=== PATIENT | female | born 1975 | race Caucasian/White ===

== ENCOUNTER 2020-05-15 08:15 | Emergency (ER) | payer OTHER ==
[2020-05-15 08:23] VITALS: BMI 28.9
[2020-05-15] MEDS ORDERED: CASIRIVIMAB (REGN10933) 1,200 MG, IMDEVIMAB (REGN10987) 1,200 MG in SODIUM CHLORIDE 250 ML IVPB ONE (09:24)
[2020-05-15 09:53] LABS: HEMATOCRIT 36.4 % (32.4-45.2); HEMOGLOBIN 12.2 GM/dL (10.7-15.3); MCH 28.9 pg (25.7-33.7); MCHC 33.5 g/dl (32.0-36.0); MEAN CELL VOLUME 86.4 fl (80-96); MEAN PLT VOLUME 7.6 fl (7.5-11.1); PLATELET COUNT 300 K/MM3 (134-434); RBC 4.21 M/mm3 (3.60-5.2); RDW 13.3 % (11.6-15.6); WHITE BLOOD COUNT 6.2 K/mm3 (4.0-10.0)
[2020-05-15 10:10] LABS: CHLORIDE 105 mmol/L (98-107); SODIUM 140 mmol/L (136-145)
[2020-05-15 10:12] LABS: BLOOD UREA NITROGEN 7.7 mg/dL (7-18); CALCIUM 9.5 mg/dL (8.5-10.1); CO2 31 mmol/L (21-32); GLUCOSE,RANDOM 177 mg/dL (74-106)
[2020-05-15 10:15] LABS: ANION GAP 5 MMOL/L (8-16); CREATININE 0.7 mg/dL (0.55-1.3); POTASSIUM 4.4 mmol/L (3.5-5.1)
[2020-05-15 13:13] VITALS: BP 138/78; PULSE 89; TEMP 98.3
== END 2020-05-15 13:13 | disposition home or self-care (01) ==
LOC: JCOVINFU 08:15
DX: U07.1 COVID-19 (principal)
CPT/HCPCS: 36415; 80048; 84702; 85027; 99284-25; M0243; Q0243